=== PATIENT | female | born 1940 | race American Indian/Alaskan Native ===

== ENCOUNTER 2017-10-21 11:56 | Emergency (ER) | payer MEDICARE ==
[~2017-10-21] VITALS: Ht 162.6 cm; Wt 72.6 kg
== END 2017-10-21 14:42 | disposition home or self-care (01) ==
LOC: ER 11:56
DX: S16.1XXA Strain of muscle, fascia and tendon at neck level, initial encounter (principal); S39.012A Strain of muscle, fascia and tendon of lower back, initial encounter; W18.39XA Other fall on same level, initial encounter
CPT/HCPCS: 70450; 72100; 72125; 99284

== ENCOUNTER 2019-11-07 21:35 | Emergency (ER) | payer MEDICARE ==
[~2019-11-07] VITALS: Ht 160 cm; Wt 68.0 kg
[2019-11-07] MEDS ORDERED: Carbamazepine200 MG PO (22:06)
[2019-11-07] MEDS ORDERED: ONDA4ODT MM (23:47)
[2019-11-07] MEDS ORDERED: Norco 5-325 Ta1 EACH PO (23:47)
== END 2019-11-08 01:25 | disposition home or self-care (01) ==
LOC: ER 21:35
DX: S42.211A Unspecified displaced fracture of surgical neck of right humerus, initial encounter for closed fracture (principal); W19.XXXA Unspecified fall, initial encounter
CPT/HCPCS: 29105; 70450; 72125; 73030; 73070; 99284-25; A9270; A9270-GY

== ENCOUNTER 2021-05-26 15:31 | Emergency (ER) | payer OTHER, MEDICARE ==
[~2021-05-26] VITALS: Ht 160 cm; Wt 90.7 kg
[~2021-05-26 15:31] MED LIST: Carbamazepine200 MG PO; Norco 5-325 Ta1 EACH PO; ONDA4ODT MM
== END 2021-05-26 18:23 | disposition home or self-care (01) ==
LOC: ER 15:31
DX: S01.01XA Laceration without foreign body of scalp, initial encounter (principal); S50.312A Abrasion of left elbow, initial encounter; Z23 Encounter for immunization; W01.0XXA Fall on same level from slipping, tripping and stumbling without subsequent striking against object, initial encounter
CPT/HCPCS: 70450; 90714; A9270

== ENCOUNTER 2021-06-19 12:15 | Emergency (ER) | payer MEDICARE ==
[~2021-06-19] VITALS: Ht 160 cm; Wt 68.0 kg
[2021-06-19 16:15] LABS: Calcium, Ionized (POC) 1.12 mmol/L (1.10-1.46); Chloride (POC) 93 mmol/L (98-108); Creatinine (POC) 0.6 mg/dL (0.6-1.0); Glucose (ISTAT POC) 101 mg/dL (70-99); Hemoglobin (POC) 14.3 g/dL (12.0-16.0); Potassium (POC) 3.5 mmol/L (3.5-5.5); Sodium (POC) 130 mmol/L (135-148); Total CO2 (POC) 25 mmol/L (21-32)
== END 2021-06-19 16:53 | disposition home or self-care (01) ==
LOC: ER 12:15
PROVIDERS: Emergency Medicine
DX: F07.81 Postconcussional syndrome (principal); E87.1 Hypo-osmolality and hyponatremia
CPT/HCPCS: 36415; 70450; 80047; 85014

== ENCOUNTER 2022-09-03 08:07 | Day surgery (SDC) | payer MEDICARE ==
[~2022-09-03] VITALS: Ht 160 cm; Wt 67.6 kg
--- NOTE | 2022-09-03 08:34 | NUR ---
09/03/22 0834 Vidya Balderrama AT 0831 PLEDGET AT [id number]
[2022-09-03 08:40] VITALS: BP 151/84
== END 2022-09-03 09:08 | disposition home or self-care (01) ==
LOC: ORSCSDS 08:07
DX: H25.11 Age-related nuclear cataract, right eye (principal); Z53.9 Procedure and treatment not carried out, unspecified reason
CPT/HCPCS: 93005; 93010; J2001; J3010; J3301; J7040

== ENCOUNTER 2022-10-22 06:41 | Day surgery (SDC) | payer MEDICARE ==
[~2022-10-22] VITALS: Ht 160 cm; Wt 66.3 kg
[2022-10-22] MEDS ORDERED: AMLODIPINE BESYL5 MG PO (07:06)
[2022-10-22 08:36] VITALS: BP 138/81
== END 2022-10-22 08:50 | disposition home or self-care (01) ==
LOC: ORSCSDS 06:41
PROVIDERS: Ophthalmology
PROC: 08DJ3ZZ Extraction of Right Lens, Percutaneous Approach (ICD-10-PCS; principal; 2022-10-22 08:00)
DX: H25.11 Age-related nuclear cataract, right eye (principal); I10 Essential (primary) hypertension; I48.91 Unspecified atrial fibrillation; Z79.899 Other long term (current) drug therapy
CPT/HCPCS: 82947; A9270; J2001; J2250; J3010; J3301; J7040; V2632

== ENCOUNTER 2022-11-19 06:55 | Day surgery (SDC) | payer MEDICARE ==
[~2022-11-19] VITALS: Ht 160 cm; Wt 66.4 kg
[~2022-11-19 06:55] MED LIST changes: +AMLODIPINE BESYL5 MG PO
--- NOTE | 2022-11-19 07:35 | NUR ---
11/19/22 0735 Vidya Balderrama AT 0713 PLESELVINET AT 0714
[2022-11-19 08:33] VITALS: BP 149/61
== END 2022-11-19 08:41 | disposition home or self-care (01) ==
LOC: ORSCSDS 06:55
PROVIDERS: Ophthalmology
PROC: 08RK3JZ Replacement of Left Lens with Synthetic Substitute, Percutaneous Approach (ICD-10-PCS; principal; 2022-11-19 07:30)
DX: E11.36 Type 2 diabetes mellitus with diabetic cataract (principal); H25.12 Age-related nuclear cataract, left eye; Z96.1 Presence of intraocular lens; I48.91 Unspecified atrial fibrillation; Z79.899 Other long term (current) drug therapy
CPT/HCPCS: 82947; A9270; J1100; J2001; J2250; J2405; J2704; J3010; J3301; J7040; V2632

== ENCOUNTER → 2023-03-12 | Outpatient (CLI) | payer MEDICARE ==
[2023-03-12 15:35] LABS: BASOPHILS ABSOLUTE AUTO 0.04 K/mm3 (0.00-0.23); BASOPHILS PERCENT AUTO 1 % (0-2); EOSINOPHILS ABSOLUTE AUTO 0.04 K/mm3 (0.00-0.68); EOSINOPHILS PERCENT AUTO 1 % (0-6); Hematocrit 36.5 % (33.0-51.0); Hemoglobin 12.5 g/dL (11.5-16.0); IMMATURE GRAN ABSOLUTE AUTO 0.03 K/mm3 (0.00-0.10); IMMATURE GRAN PERCENT AUTO 1 % (0-1); LYMPHOCYTES ABSOLUTE AUTO 0.75 K/mm3 (0.84-5.20); LYMPHOCYTES PERCENT AUTO 12 % (21-46); MONOCYTES ABSOLUTE AUTO 0.54 K/mm3 (0.16-1.47); MONOCYTES PERCENT AUTO 9 % (4-13); Mean Corpuscular HGB 31.5 pg (26.0-34.0); Mean Corpuscular HGB Conc 34.2 g/dL (31.5-36.5); Mean Corpuscular Volume 92 fL (80-100); Mean Platelet Volume 9.6 fL (9.1-12.4); NEUTROPHILS ABSOLUTE AUTO 4.71 K/mm3 (1.96-9.15); NEUTROPHILS PERCENT AUTO 77 % (41-73); Platelet Count 233 K/mm3 (150-400); RDW Coefficient Variation 12.7 % (11.7-14.2); RDW Standard Deviation 42.7 fL (35.1-46.3); Red Blood Cell Count 3.97 M/mm3 (3.80-5.20); White Blood Cell Count 6.11 K/mm3 (4.00-11.30)
[2023-03-12 15:44] LABS: Alanine Aminotransfer (ALT/SGP 24 U/L (12-78); Albumin, Blood 3.6 g/dL (3.4-5.0); Albumin/Globulin Ratio 0.9 (0.8-1.8); Alk Phos 130 U/L (50-136); Anion Gap 5 mmol/L (6-16); Aspartate Aminotrans (AST/SGOT 29 U/L (12-37); Bilirubin, Total 0.4 mg/dL (0.1-1.0); Blood Urea Nitrogen 9 mg/dL (8-24); Bun/Creatinine Ratio 13.3 (12.0-20.0); CO2, Blood 28 mmol/L (21-32); Calcium, Blood 8.5 mg/dL (8.5-10.1); Carbamazepine 11.4 ug/mL (4.0-12.0); Chloride, Blood 97 mmol/L (98-108); Creatinine, Blood 0.68 mg/dL (0.40-1.00); Glomerular Filtration Rate 86 (60-); Glucose, Blood 118 mg/dL (70-99); Potassium, Blood 3.5 mmol/L (3.5-5.5); Sodium, Blood 130 mmol/L (136-145); Total Protein, Blood 7.6 g/dL (6.4-8.2)
== END | disposition home or self-care (01) ==
LOC: LAB SHORT 14:50 → LAB 14:50
PROVIDERS: Physician Assistant
DX: G40.909 Epilepsy, unspecified, not intractable, without status epilepticus (principal); I10 Essential (primary) hypertension
CPT/HCPCS: 80053; 80156; 85025

== ENCOUNTER 2024-02-12 12:29 | Inpatient (IN) | payer OTHER ==
[2024-02-12] VITALS (17 sets, daily range): BP systolic 129–153; BP diastolic 65–96
[~2024-02-12] VITALS: Ht 160 cm; Wt 65.6 kg
[2024-02-12] MEDS ORDERED: Diphth,Pertuss(Acell),Tet Vac 0.5 ML VIAL IM ONE (13:50)
[2024-02-12 14:14] LABS: BASOPHILS ABSOLUTE AUTO 0.03 K/mm3 (0.00-0.23); BASOPHILS PERCENT AUTO 0 % (0-2); EOSINOPHILS ABSOLUTE AUTO 0.02 K/mm3 (0.00-0.68); EOSINOPHILS PERCENT AUTO 0 % (0-6); Hematocrit 34.3 % (33.0-51.0); Hemoglobin 11.7 g/dL (11.5-16.0); IMMATURE GRAN ABSOLUTE AUTO 0.06 K/mm3 (0.00-0.10); IMMATURE GRAN PERCENT AUTO 1 % (0-1); LYMPHOCYTES ABSOLUTE AUTO 0.61 K/mm3 (0.84-5.20); LYMPHOCYTES PERCENT AUTO 9 % (21-46); MONOCYTES ABSOLUTE AUTO 0.39 K/mm3 (0.16-1.47); MONOCYTES PERCENT AUTO 6 % (4-13); Mean Corpuscular HGB Conc 34.1 g/dL (31.5-36.5); Mean Corpuscular Volume 91 fL (80-100); Mean Platelet Volume 8.6 fL (9.1-12.4); NEUTROPHILS ABSOLUTE AUTO 6.01 K/mm3 (1.96-9.15); NEUTROPHILS PERCENT AUTO 84 % (41-73); Platelet Count 207 K/mm3 (150-400); RDW Coefficient Variation 13.2 % (11.7-14.2); RDW Standard Deviation 43.7 fL (35.1-46.3); Red Blood Cell Count 3.78 M/mm3 (3.80-5.20); White Blood Cell Count 7.12 K/mm3 (4.00-11.30)
[2024-02-12] MEDS ORDERED: NiCARdipine HCL 50 MG in NS 250 ML IV SCH (14:40)
[2024-02-12 14:45] LABS: Albumin, Blood 3.7 g/dL (3.4-5.0); Bilirubin, Total 0.7 mg/dL (0.1-1.0); Bun/Creatinine Ratio 13.2 (12.0-20.0); Calcium, Blood 8.6 mg/dL (8.5-10.1); Creatinine, Blood 0.61 mg/dL (0.40-1.00); Globulin, Blood 3.7 g/dL (2.2-4.0); Potassium, Blood 3.5 mmol/L (3.5-5.5); Total Protein, Blood 7.4 g/dL (6.4-8.2)
[2024-02-12] MEDS ORDERED: Acetaminophen 325 MG TABLET PO PRN (16:55)
[2024-02-12] MEDS ORDERED: FentaNYL Citrate 50 MCG/ML 2 ML Injection IV PRN (16:55)
[2024-02-12] MEDS ORDERED: HydrALAZINE HCl 20 MG / ML 1ML Vial IV PRN (16:55)
[2024-02-12] MEDS ORDERED: NS 1,000 ML IV SCH (17:10)
--- NOTE | 2024-02-12 20:13 | NUR ---
ASSUME CARE: RECIEVED REPORT FROM SHANI VALLECILLO. PT ARRIVED ON THE UNIT ON SHIFT CHANGE. PT ALERT AND ORIENTED TO SELF, FAMILY, AND SITUATION, HAS HX OF DEMENTIA, FAMILLY REPORTS SHE IS FORGETFUL. NIECE STATES SHE HAS HAD PRIOR FALL THAT RESULTED IN LEFT SIDED FACIAL DROOP. HEAD LACERATION W/JOSEPH, MINIMAL BLEEDING, PICTURE IN CHART. NICARDIPINE GTT INFUSING AT 1.25 MG/HR TO KEEP SBP 130-140s. PUREWICK IN PLACE FOR BEDREST. SPO2>96% ON RA, DENIES SOB. JAROCHO SPOKE TO THE PT AND FAMILY ABOUT CODE STATUS IN WHICH IT WAS AGREED THAT THE PT WOULD BE A DNR STATUS AT THIS TIME. PT NIECE STATES THERE IS AN ADVANCED DIRECTIVE WHICH SHE WILL BRING IN THE MORNING. CALL LIGHT IN REACH. WILL UPDATE NEEDED.
[2024-02-12] MEDS ORDERED: NS 250 ML IV PRN (20:15)
[2024-02-12] MEDS ORDERED: CarBAMazepine 200 MG Tab PO SCH (21:00)
[2024-02-12 22:53] LABS: Source, Urine Clean Catch
[2024-02-12 23:02] LABS: Bilirubin, Urine Neg (Neg); Blood, Urine 2+ (Neg); Glucose Qualitative, Urine Neg (Neg); Ketones, Urine 2+ (Neg); Leukocyte Esterase, Urine 1+ (Neg); Nitrite, Urine Neg (Neg); Protein, Urine Neg (Neg); Specific Gravity, Urine 1.005 (1.003-1.022); Urobilinogen, Urine NORM (Normal)
[2024-02-12 23:13] LABS: Appearance, Urine Clear (Clear); Color, Urine Yellow (P-Yellow)
[2024-02-12 23:16] LABS: Bacteria Mod /hpf; Red Blood Cells, Urine 0-2 /hpf (0-2); Squamous Epithelial Cells Few /hpf (Few); White Blood Cells, Urine 0-2 /hpf (0-5)
[2024-02-13] VITALS (43 sets, daily range): BP systolic 99–172; BP diastolic 53–87
--- NOTE | 2024-02-13 00:34 | NUR ---
WOUND: DOCTOR KENDELL NOTIFIED OF WOUND TO BACK OF PT HEAD.
[2024-02-13 03:40] LABS: BASOPHILS ABSOLUTE AUTO 0.02 K/mm3 (0.00-0.23); BASOPHILS PERCENT AUTO 0 % (0-2); EOSINOPHILS ABSOLUTE AUTO 0.01 K/mm3 (0.00-0.68); EOSINOPHILS PERCENT AUTO 0 % (0-6); Hemoglobin 10.7 g/dL (11.5-16.0); IMMATURE GRAN ABSOLUTE AUTO 0.03 K/mm3 (0.00-0.10); IMMATURE GRAN PERCENT AUTO 1 % (0-1); LYMPHOCYTES ABSOLUTE AUTO 0.67 K/mm3 (0.84-5.20); LYMPHOCYTES PERCENT AUTO 12 % (21-46); MONOCYTES ABSOLUTE AUTO 0.41 K/mm3 (0.16-1.47); MONOCYTES PERCENT AUTO 7 % (4-13); Mean Corpuscular HGB 30.8 pg (26.0-34.0); Mean Corpuscular HGB Conc 34.5 g/dL (31.5-36.5); Mean Corpuscular Volume 89 fL (80-100); Mean Platelet Volume 8.9 fL (9.1-12.4); NEUTROPHILS ABSOLUTE AUTO 4.37 K/mm3 (1.96-9.15); NEUTROPHILS PERCENT AUTO 79 % (41-73); Platelet Count 196 K/mm3 (150-400); RDW Coefficient Variation 13.2 % (11.7-14.2); RDW Standard Deviation 43.5 fL (35.1-46.3); Red Blood Cell Count 3.47 M/mm3 (3.80-5.20); White Blood Cell Count 5.51 K/mm3 (4.00-11.30)
[2024-02-13 03:57] LABS: International Normalized Ratio 1.04; Prothrombin Time Results 11.1 Sec (9.7-11.5)
[2024-02-13 04:01] LABS: Albumin, Blood 3.3 g/dL (3.4-5.0); Bilirubin, Total 0.8 mg/dL (0.1-1.0); Bun/Creatinine Ratio 11.3 (12.0-20.0); Calcium, Blood 8.2 mg/dL (8.5-10.1); Creatinine, Blood 0.53 mg/dL (0.40-1.00); Globulin, Blood 3.4 g/dL (2.2-4.0); Potassium, Blood 3.3 mmol/L (3.5-5.5); Total Protein, Blood 6.7 g/dL (6.4-8.2)
[2024-02-13] MEDS ORDERED: Potassium Chloride 20 MEQ TabCR PO ONE (04:55)
--- NOTE | 2024-02-13 05:23 | NUR ---
SHIFT SUMMARY: PT CONTINUES TO BE ALERT AND ORIENTED TO SELF, PERSON, SITUATION. NO NEUROLOGICAL CHANGES T/O THE NIGHT. SBP 120s-130s WITH GOAL TO KEEP SBP BELOW 140. PT DENIES CHEST PAIN OR PRESSURE. SPO2 >95% ON RA, DENIES SOB. PT ABLE TO TOLERATE PO MEDICATION. HEAD LAC HAS HAD MINIMAL BLEEDING T/O THE NIGHT. NICARDIPINE GTT ON SB. PT ABLE TO PARTICIPATE IN CARE. PUREWICK IN PLACE DRAINING YELLOW URINE, W/GOOD OUTPUT THIS SHIFT. CALL LIGHT IN REACH. WILL REPORT TO ONCOMING RN.
[2024-02-13] MEDS ORDERED: AmLODIPine Besylate 5 MG Tab PO SCH (09:00)
--- NOTE | 2024-02-13 10:31 | NUR ---
ASSUMED CARE PT IS A&OX3, RESPONDING APPROPRIATLY. Q4 NEURO CHECKS. SBP 130-140'S, HR 60-70'S, AFIB ON MONITOR. NICARDIPINE DRIP ON SB SINCE 0600. SBP MAINTAINING TARGET RANGE. RA WITH SATS IN THE 90'S, DENIES SOB. LUNG SOUNDS CLEAR. REG DIET ORDERED, TRAY OFFERED BUT REFUSED. PUREWIK IN PLACE AND HOOKED UP TO SUCTION. LAC ON BACK OF HEAD HAS MINIMAL BLEEDING, JOSEPH STILL IN PLACE. DR NATION STATUS CHANGED TO MED NO TELE. DR CHILD ROUNDED ON PT THIS AM.
--- NOTE | 2024-02-13 17:11 | NUR ---
SHIFT SUMMARY A&OX3, RESPONDS/CALLS APPROPRIATLY. LAC WITH 8 JOSEPH ON BACK OF HEAD, CLEANED THIS SHIFT. HR 70'S, A-FIB ON THE MONITOR, HX OF AFIB. SBP SUSTAINED IN THE 120-130'S, MEETING TARGET GOAL. NICARDIPINE ON SB SINCE PREVIOUS SHIFT. ON ROOM AIR WITH SATS IN THE 90'S, DENIES SOB. LUNG SOUNDS CLEAR. VOIDING AT BEDSIDE TOILET WITH SB ASSIST AND WALKER. TOLERATING PO INTAKE. BED BATH GIVEN. AMBULATED AROUND UNIT WITH WALKER, GAITBELT AND ONE NURSE ASSIST. NO C/O DIZZINESS OR SOB. NO ACUTE EVENTS THIS SHIFT. AWAITING TRANSFER TO MEDICAL FLOOR.
--- NOTE | 2024-02-13 17:52 | NUR ---
SHIFT SUMMARY/TRANSFER PT A&0X4, COOPERATIVE, ABLE TO MAKE NEEDS KNOWN. TRANSFERRED FROM ICU10 VIA WHEELCHAIR BY AVEL SMITH RN. SKIN CHECK PERFORMED BY THIS RN AND SEBLE ATKINSON RN. TRANSFERRED FROM WHEELCHAIR TO BED A BIT UNSTEADY, 1 PERSON ASSIST, BUT SAFE. 2 IV'S, LEFT HAND, RIGHT AC. BED IN LOWEST POSITION, CALL LIGHT WITHIN REACH.
[2024-02-13] MEDS ORDERED: Losartan Potassium 25 MG Tab PO SCH (21:00)
[2024-02-14 04:53] VITALS: BP 131/79
--- NOTE | 2024-02-14 05:13 | NUR ---
SHIFT SUMMARY PT A&Ox4. ABLE TO MAKE NEEDS KNOWN. SMALL AMOUNT OF BRIGHT RED BLOOD NOTED ON PILLOW AT BEGINING OF SHIFT. LACERATON WITH 8 JOSEPH ON BACK OF PT'S HEAD HAD MINIMAL BLEEDING. 3 OF THE JOSEPH APPEARED TO BE SLIGHTLY PULLED AWAY FROM SKIN. PT GESTURED THAT SHE HAD BEEN USING FINGERS TO RUB HEAD. SMALL ABSORBANT PAD PLACED OVER LACERATION WITH HAT MAD FROM NETTING TO KEEP IN PLACE. PT'S BP ELEVATED WITH EVENING VITALS. SCHEDULED COZAAR GIVEN. BP CHECKED AGAIN ABOUT 40MIN LATER AND BP STILL ELEVATED AT 159/66. HYDRALAZIN GIVEN, BY BREAK NURSE, PER EMAR ORDERS. BP DECREASED TO 99/86 AND WHEN RECHECKED ABOUT 40 MIN LATER WAS 106/53. PT DENIED FEELING NAUSEOUS, DIZZY, OR LIGHT HEADED. NEURO CHECKS UNCHANGED. PT IMPULISIVE SO BED ALARM ON. BED IN LOWEST POSITION AND CALL LIGHT IN REACH.
[2024-02-14 05:36] LABS: BASOPHILS ABSOLUTE AUTO 0.03 K/mm3 (0.00-0.23); BASOPHILS PERCENT AUTO 0 % (0-2); EOSINOPHILS ABSOLUTE AUTO 0.03 K/mm3 (0.00-0.68); EOSINOPHILS PERCENT AUTO 0 % (0-6); Hematocrit 30.5 % (33.0-51.0); Hemoglobin 10.4 g/dL (11.5-16.0); IMMATURE GRAN ABSOLUTE AUTO 0.04 K/mm3 (0.00-0.10); IMMATURE GRAN PERCENT AUTO 1 % (0-1); LYMPHOCYTES ABSOLUTE AUTO 0.68 K/mm3 (0.84-5.20); LYMPHOCYTES PERCENT AUTO 10 % (21-46); MONOCYTES ABSOLUTE AUTO 0.54 K/mm3 (0.16-1.47); MONOCYTES PERCENT AUTO 8 % (4-13); Mean Corpuscular HGB 30.6 pg (26.0-34.0); Mean Corpuscular HGB Conc 34.1 g/dL (31.5-36.5); Mean Corpuscular Volume 90 fL (80-100); NEUTROPHILS ABSOLUTE AUTO 5.68 K/mm3 (1.96-9.15); NEUTROPHILS PERCENT AUTO 81 % (41-73); Platelet Count 198 K/mm3 (150-400); RDW Coefficient Variation 13.2 % (11.7-14.2); RDW Standard Deviation 43.9 fL (35.1-46.3)
[2024-02-14 06:11] LABS: Albumin/Globulin Ratio 0.9 (0.8-1.8); Bilirubin, Total 0.6 mg/dL (0.1-1.0); Bun/Creatinine Ratio 16.7 (12.0-20.0); Calcium, Blood 8.4 mg/dL (8.5-10.1); Creatinine, Blood 0.6 mg/dL (0.40-1.00); Globulin, Blood 3.4 g/dL (2.2-4.0); Potassium, Blood 3.8 mmol/L (3.5-5.5); Total Protein, Blood 6.4 g/dL (6.4-8.2)
[2024-02-14 07:32] VITALS: BP 135/83
[2024-02-14] MEDS ORDERED: LOSA25 PO (11:38)
--- NOTE | 2024-02-14 14:40 | NUR ---
DISCHARGE: PT D/C @1530 VIA WHEELCHAIR WITH FAMILY/CAREGIVERS. IV(S) REMOVED BY SUPPLY CLERK W/O COMPLICATIONS. MEDICATIONS FAXED TO [facility]. PT TO HAVE JOSEPH IN BACK OF HEAD REMOVED AT FOLLOW-UP APPOINTMENT WITH ELDA. ELDA TO CALL FAMILY TOMORROW 02/15/24 FOR FOLLOW-UP APPOINTMENT DATE/TIME.
== END 2024-02-14 13:43 | disposition home or self-care (01) | DRG 84 ==
LOC: ER 12:29 → ICUE 12:30 → MEDS 02-13 17:39
PROVIDERS: Family Medicine; Internal Medicine; Student in an Organized Health Care Education/Training Program; ADMIT Surgery
PROC: 0HQ0XZZ Repair Scalp Skin, External Approach (ICD-10-PCS; principal; 2024-02-13)
PROC: 3E0234Z Introduction of Serum, Toxoid and Vaccine into Muscle, Percutaneous Approach (ICD-10-PCS; 2024-02-13)
DX: S06.38 Contusion, laceration, and hemorrhage of brainstem (principal); Z66 Do not resuscitate; S01.01XA Laceration without foreign body of scalp, initial encounter; G40.909 Epilepsy, unspecified, not intractable, without status epilepticus; I48.91 Unspecified atrial fibrillation; S06.6XAA Traumatic subarachnoid hemorrhage with loss of consciousness status unknown, initial encounter; I10 Essential (primary) hypertension; Z23 Encounter for immunization; Z79.899 Other long term (current) drug therapy; W01.198A Fall on same level from slipping, tripping and stumbling with subsequent striking against other object, initial encounter; Y92.481 Parking lot as the place of occurrence of the external cause
CPT/HCPCS: 12002; 36415; 70450; 71045; 72125; 73030; 80053; 81001; 82947; 83880; 84484; 85025; 85610; 87086; 90471; 90715; 93005; 93010; 96365; 96366; 99285-25; A9270; G0378; J0360; J7030; J7050; L0160